=== PATIENT | male | born 1990 | race Hispanic/Latino ===

== ENCOUNTER 2024-12-03 08:20 | Emergency (ER) | payer OTHER, MEDICARE ==
[~2024-12-03] VITALS: Ht 165.1 cm; Wt 104.3 kg
[2024-12-03 10:11] LABS: BASOPHILS # (AUTO) 0.04 K/uL (0.00-0.20); BASOPHILS % (AUTO) 0.6 % (0.0-5.0); EOSINOPHILS # (AUTO) 0.18 K/uL (0.00-0.70); EOSINOPHILS % (AUTO) 2.9 % (0.0-8.0); HEMATOCRIT 46.1 % (42-54); IMMATURE GRANULOCYTE ABSOLUTE 0.01 K/uL (0-1); LYMPHOCYTES # (AUTO) 2.2 K/uL (1.0-4.8); LYMPHOCYTES % (AUTO) 35.8 % (21.0-51.0); MEAN CORPUSCULAR HEMOGLOBIN 28.7 pg (27.0-33.0); MEAN CORPUSCULAR HGB CONC 32.5 g/dL (32.0-36.0); MEAN CORPUSCULAR VOLUME 88.3 fL (79-99); MONOCYTES # (AUTO) 0.4 K/uL (0.1-1.0); MONOCYTES % (AUTO) 7.1 % (3.0-13.0); NEUTROPHILS # (AUTO) 3.3 K/uL (1.8-7.7); NEUTROPHILS % (AUTO) 53.4 % (40.0-77.0); PLATELET COUNT (AUTO) 213 K/uL (130-400); RED BLOOD CELL COUNT(AUTO) 5.22 MIL/uL (4.50-6.20); RED CELL DISTRIBUTION WIDTH 14.1 % (11.0-15.5); WHITE BLOOD COUNT (AUTO) 6.2 K/uL (4.8-10.8)
[2024-12-03 10:29] LABS: POTASSIUM 3.8 mmol/L (3.5-5.1)
[2024-12-03 10:30] LABS: APPEARANCE,URINE CLEAR (CLEAR); BILIRUBIN,URINE NEGATIVE (NEGATIVE); COLOR,URINE YELLOW (YELLOW); GLUCOSE, URINE (UA) NEGATIVE (NEGATIVE); KETONES,URINE NEGATIVE (NEGATIVE); LEUKOCYTE ESTERASE ,URINE NEGATIVE Leu/uL (NEGATIVE); NITRATE,URINE NEGATIVE (NEGATIVE); OCCULT BLOOD,URINE NEGATIVE (NEGATIVE); PROTEIN,URINE 10 mg/dL (NEGATIVE)
[2024-12-03 10:31] LABS: ADD UA MICROSCOPIC YES
[2024-12-03 10:33] LABS: MUCUS,URINE MANY LPF (None Seen); RBC,URINE 0-1 /HPF (0-1)
[2024-12-03] MEDS ORDERED: IOHEXOL 350 MG/ML 100ML INFUS..BTL IV ONE (10:38)
[2024-12-03] MEDS: ketOROlac 15MG/ML VIAL (15MG/ML) IV ONE (10:41)
[2024-12-03] MEDS: LACTATED RINGERS 1000ML 1,000 ML IV ONE (10:41)
[2024-12-03 11:18] LABS: ERYTHROCYTE SEDIMENTATION RATE 5 MM/HR (0-15)
--- NOTE | 2024-12-03 11:23 | EKG ---
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
--- NOTE | 2024-12-03 11:28 | HMCIMG ---
CT ABDOMEN/PELVIS W/CONTRAST HISTORY: Left lower abdominal pain COMPARISON: None TECHNIQUE: Multiple sequential axial images of the abdomen and pelvis were obtained from the dome of the diaphragm through symphysis pubis. Patient was not given contrast through intravenous route. Oral contrast was not given. FINDINGS: No pleural effusion is seen bilaterally. There is no evidence of parenchymal disease or pulmonary nodule of the visualized lower lungs. Degenerative changes of the thoracolumbar spine are present. The heart is not enlarged. Liver measured 13.2 cm. The liver, spleen, adrenal glands and pancreas are unremarkable. There is no evidence of hydronephrosis bilaterally. No evidence of renal stone is seen. There is mild diverticulosis. Fecal material is seen in the colon. There are normal size retroperitoneal and mesenteric lymph nodes. No ascites is seen. Atherosclerotic changes are present. Pelvic sidewalls are symmetric bilaterally. Bladder is well distended without wall thickening. IMPRESSION: 1. There is mild diverticulosis. No ascites is seen. Fecal material is seen. CT was performed with one or more following dose reduction techniques: automated exposure control, adjustment of the mA and kv according to patient's size, or use of a iterative reconstruction technique.
[2024-12-03 12:00] VITALS: TEMP 98.7
--- NOTE | 2024-12-03 12:04 | ERN ---
General Chief Complaint: Multiple Complaints Stated Complaint: WEAKNESS Time Seen by MD: 08:27 History of Present Illness Initial Comments 34-year-old male, history of cerebral palsy developmental delay and seizures, presents for left lower quadrant pain left hip pain left leg pain. According to the staff, the patient has been complaining of his pain on and off for a couple of weeks. Recently he has had decreased eating and he has been more tired than usual. No fevers. No vomiting. No diarrhea. No changes to urination. Patient is able to communicate some, does not indicate that he has pain on the left femur, left hip, left lower quadrant area. There was no obvious skin changes to the area or signs of trauma. Allergies: Coded Allergies: No Known Allergies (Unverified Allergy, Unknown, 12/03/24) Past Medical History Past Medical History: Bipolar, Depression, Seizure Medical History Other: MR Past Surgical History: Unknown ROS Dictation CONSTITUTIONAL: No chills, no fever, no weakness, no diaphoresis, no malaise. HEAD/FACE: No signs of trauma. EENT: No eye pain, no blurred vision, no tearing, no double vision, no ear pain, no ear discharge, no nose pain, no nasal congestion, no throat pain, no throat swelling, no mouth pain. RESPIRATORY: No cough, no orthopnea, no SOB, no stridor, no wheezing. CARDIOVASCULAR: No chest pain, no edema, no palpitations, no syncope. GASTROINTESTINAL/ABDOMINAL: Abdominal pains GENITOURINARY: No abnormal discharge, no dysuria, no frequent urination, no hematuria. No complaints of pain in the genitals. MUSCULOSKELETAL: Left-sided abdominal pain left-sided leg pain INTEGUMENTARY: No change in color, no change in hair/nails, no dryness, no lesion, no lumps, no rash. NEUROLOGICAL/PSYCH: No anxiety, not depressed, no emotional problem, no headache, no numbness, no pre-existing deficit, no history of seizures, no tremors, no weakness. HEMATOLOGIC/LYMPHATIC: Not anemic, no history of blood clots, no apparent bleeding, no bruising, glands not swollen. All Systems Negative, Except as Noted. Physical Exam Physical Exam Dictation VITAL SIGNS: Reviewed. GENERAL APPEARANCE: Alert, baseline mentation HEAD AND FACE: Non-traumatic. EYES: PERRL, pink conjunctivas, eyelid no trauma, anterior chamber clear. EARS: Pinnas intact and no signs of trauma or erythema. Ear canals clear and no discharge. TMs no erythema. NOSE: No discharge, no bleeding. OROPHARYNX: Mouth normal, teeth no caries, tongue pink. Pharynx clear, no erythema. Tonsils no exudates, no abscesses noted. Mucous membrane moist. NECK: Supple, non-tender, no thyromegaly, no masses, no JVD, no bruits. BREAST: Deferred. CHEST: No tenderness, no crepitus, no paradoxical movement, no retractions. LUNGS: Clear, well-ventilated, symmetric, no rales, no wheezing, no rhonchi, no stridor, good breath sounds bilaterally. HEART: Regular rate, regular rhythm, no murmur, no gallops. VASCULAR: No peripheral edema. ABDOMEN: Soft, positive bowel sounds, nondistended, no guarding, nontender, no rebound, no masses no hepatomegaly, no splenomegaly, no Grant's sign, no hernias. RECTAL: Deferred. GENITAL: Deferred. NEUROLOGICAL: Normal speech, gross motor function intact, gross sensory function intact. MUSCULOSKELETAL: Neck nontender, full range of motion, back nontender, full range of motion. EXTREMITIES: Nontender, full range of motion. SKIN: Color pink, dry, no turgor, no rash, no lacerations, no abrasions, no contusions. LYMPHATICS: Deferred. Results Laboratory and Microbiology Lab and Micro Result Laboratory Tests Test 12/03/24 09:47 12/03/24 10:22 White Blood Count 6.2 K/uL (4.8-10.8) Red Blood Count 5.22 MIL/uL (4.50-6.20) Hemoglobin 15.0 g/dL (14.0-18.0) Hematocrit 46.1 % (42-54) Mean Corpuscular Volume 88.3 fL (79-99) Mean Corpuscular Hemoglobin 28.7 pg (27.0-33.0) Mean Corpuscular Hemoglobin Concent 32.5 g/dL (32.0-36.0) Red Cell Distribution Width 14.1 % (11.0-15.5) Platelet Count 213 K/uL (130-400) Mean Platelet Volume 10.9 fL (7.5-10.5) H Immature Granulocyte % (Auto) 0.2 % (0-1) Neutrophils (%) (Auto) 53.4 % (40.0-77.0) Lymphocytes (%) (Auto) 35.8 % (21.0-51.0) Monocytes (%) (Auto) 7.1 % (3.0-13.0) Eosinophils (%) (Auto) 2.9 % (0.0-8.0) Basophils (%) (Auto) 0.6 % (0.0-5.0) Neutrophils # (Auto) 3.3 K/uL (1.8-7.7) Lymphocytes # (Auto) 2.2 K/uL (1.0-4.8) Monocytes # (Auto) 0.4 K/uL (0.1-1.0) Eosinophils # (Auto) 0.18 K/uL (0.00-0.70) Basophils # (Auto) 0.04 K/uL (0.00-0.20) Absolute Immature Granulocyte (auto 0.01 K/uL (0-1) Nucleated Red Blood Cells 0.0 % (0.0-0.19) Erythrocyte Sedimentation Rate 5 MM/HR (0-15) Sodium Level 142 mmol/L (136-145) Potassium Level 3.8 mmol/L (3.5-5.1) Chloride Level 111 mmol/L (101-111) Carbon Dioxide Level 27 mmol/L (21-32) Blood Urea Nitrogen 12 mg/dL (7-18) Creatinine 1.0 mg/dL (0.5-1.3) Glomerular Filtration Rate Calc 101 mL/min (>90) Random Glucose 89 mg/dL (70-105) Total Calcium 8.5 mg/dL (8.5-10.1) Total Creatine Kinase 237 U/L (21-232) H C-Reactive Protein, Quantitative 7.80 mg/L (0.5-3.0) H Lipase 41 U/L (16-77) Urine Color YELLOW (YELLOW) Urine Appearance CLEAR (CLEAR) Urine pH 6.0 (5.0-8.0) Urine Specific [place] 1.032 (1.001-1.031) Urine Protein 10 mg/dL (NEGATIVE) H Urine Glucose (UA) NEGATIVE mg/dL (NEGATIVE) Urine Ketones NEGATIVE mg/dL (NEGATIVE) Urine Occult Blood NEGATIVE (NEGATIVE) Urine Nitrate NEGATIVE (NEGATIVE) Urine Bilirubin NEGATIVE mg/dL (NEGATIVE) Urine Urobilinogen 2.0 mg/dL (0.2-1.0) H Urine Leukocyte Esterase NEGATIVE Jessica/uL Urine RBC 0-1 /HPF (0-1) Urine WBC 2-5 /HPF (0-1) H Urine Bacteria None /HPF (None Seen) MDM CC: Left leg pain left lower abdominal pain Historian: Patient although difficult to communicate due developmental delay. Patient's ambulatory services representative at bedside also assisted with the history. Comorbidities: Developmental delay, cerebral palsy, seizure disorder Limitations by social determinants of health: None Differential diagnosis: UTI, diverticulitis, musculoskeletal type pain, lesions, other. Vital signs: Stable, remained stable here in the ER. Labs (independently ordered and interpreted by me): CBC is unremarkable, sed rate is normal, chemistry panel is unremarkable. CK stable lipase stable. CRP is mildly elevated at 7.8. Urinalysis shows some dehydration otherwise unremarkable. CT scan of the abdomen and pelvis with contrast (independently interpreted by me): Shows mild diverticulosis but otherwise no acute abnormalities. Femur x-ray of the left (independently interpreted by me): No acute abnormalities. Patient received IV fluids, IV Rocephin, IV Toradol here in the ER. Plan will be to discharge the patient will Augmentin. I have low suspicion for an acute diverticulitis complication, but since he is having the left-sided pain with history of diverticulosis and he is not able to communicate clearly, we will discharge with some antibiotics and pain control. Patient and ambulatory services representative agree with this plan. Discharge prescriptions: Augmentin, extra-strength Tylenol, ibuprofen ED Course Orders Procedure Category Date Status Time Cbc With Differential LAB 12/03/24 Complete :35 Urinalysis Profile LAB 12/03/24 Complete :35 Ct Abdomen/Pelvis CT 12/03/24 Resulted W/Contrast :35 12 Lead Ekg Tracing- EKG 12/03/24 Complete Technical :35 Lactated Ringers PHA 12/03/24 Complete 1000ml (Lactated 10:00 Creatine Kinase, Total LAB 12/03/24 Complete :35 Lipase LAB 12/03/24 Complete :35 Basic Metabolic Panel LAB 12/03/24 Complete :35 Femur 2 Vw Left RAD 12/03/24 Taken :35 Crp Quantitative LAB 12/03/24 Complete 09:35 Erythrocyte LAB 12/03/24 Complete Sedimentation Rate 09:35 Ketorolac PHA 12/03/24 Complete Tromethamine 15mg/Ml 10:00 Iohexol (Omnipaque) PHA 12/03/24 Complete 10:38 Ceftriaxone 1g Vial PHA 12/03/24 Complete (Rocephine 1g Inj) 12:00 Current Medications Medications (Trade) Dose Ordered Sig/Ana Laura Route PRN Reason Start Time Stop Time Status Last Admin Dose Admin Ceftriaxone Sodium (ROCEphine 1G INJ) 1 gm ONCE ONCE IVPB 12/03/24 12:00 12/03/24 12:01 DC Iohexol (Omnipaque) 35,000 mg STK-MED ONCE IV 12/03/24 10:38 12/03/24 10:39 DC Ketorolac Tromethamine (toRADol) 15 mg ONCE ONCE IV 12/03/24 10:00 12/03/24 10:28 DC 12/03/24 10:41 Lactated Ringer's 1,000 ml @ 0 mls/hr ONCE ONCE IV 12/03/24 10:00 12/03/24 10:27 DC 12/03/24 10:41 Vital Signs Date Time Temp Pulse Resp B/P (MAP) Pulse Ox O2 Delivery O2 Flow Rate FiO2 12/03/24 08:26 97.9 64 18 103/63 100 DX & DISP Disposition: Discharge Departure Impression: Primary Impression: Diverticulosis Condition: Stable Scripts Ibuprofen (Ibuprofen 800 mg Tab) 800 Mg Tab 800 MG PO Q6H PRN for PAIN, #30 TAB Prov: DAMASO HARDEN DO 12/03/24 Acetaminophen (Tylenol Extra Strength) 500 Mg Tablet 1000 MG PO QID PRN for PAIN for 10 Days, #20 TAB Prov: DAMASO HARDEN DO 12/03/24 Amoxicillin/Potassium Clav (Amox Tr-K Clv 875-125 mg Tab) 875 Mg-125 Mg Tablet 1 TAB PO BID for 10 Days, #20 TAB 0 Refills Prov: DAMASO HARDEN DO 12/03/24 Additional Instructions: Vijay may have a mild lower abdominal infection (diverticulosis). His blood work is unremarkable. The CT scan shows diverticulosis without any acute abnormalities. The x-ray is unremarkable. I have prescribed Augmentin, which is an antibiotic. Take as prescribed. Alternate Tylenol and ibuprofen for pain. Be sure to drink plenty of liquids. An electrolyte solution such as Gatorade has a good choice. I recommend follow up with the primary provider in the next 3-5 days if symptoms do not improve. Return to the emergency department sooner if you have any concerns. Referrals: WESLEY MORELAND MD (PCP) DAMASO HARDEN DO Dec 03, 2024 12:04
[2024-12-03] MEDS ORDERED: ACET-2743 PO (12:19)
[2024-12-03] MEDS ORDERED: IBUP-2077 PO (12:19)
[2024-12-03] MEDS ORDERED: AMOX1TAB16 PO (12:19)
--- NOTE | 2024-12-03 12:21 | HMCIMG ---
FEMUR 2 VW LEFT HISTORY: Pain COMPARISON: None TECHNIQUE: 4 images of left femur were obtained. FINDINGS: There is no acute displaced fracture or dislocation. Degenerative changes are seen. IMPRESSION: 1. Findings as described above.
[2024-12-03] MEDS: cefTRIAXone 1G VIAL IVPB ONE (12:56)
[2024-12-03 13:04] VITALS: BP 106/65; PULSE 62; RESP 18; O2SAT 100
== END 2024-12-03 13:15 | disposition home or self-care (01) ==
LOC: EDH 08:20
DX: K57.30 Diverticulosis of large intestine without perforation or abscess without bleeding (principal); F32.A Depression, unspecified
CPT/HCPCS: 99285; 74177; 96374; 96361; 96375; 82550; 80048; 83690; 85025; 85651; 86140; 81001; 36415; 73552; 93005; J1885; J7120; J0696; Q9967

== ENCOUNTER 2025-01-09 21:22 | Emergency (ER) | payer OTHER, MEDICARE ==
[~2025-01-09] VITALS: Ht 175.3 cm; Wt 104.3 kg
[~2025-01-09 21:22] MED LIST: ACET-2743 PO; AMOX1TAB16 PO; IBUP-2077 PO
--- NOTE | 2025-01-09 21:23 | NUR ---
PT PLACED IN ED ROOM 11. PT CARE ASSUMED AT THIS TIME.
--- NOTE | 2025-01-09 21:34 | ERN ---
ED Note History of Present Illness Stated Complaint: SEIZURES X 5 the patient is brought in from a [facility] from earlier. The patient has on a strict schedule of multiple antiepileptics some medications. Has developmental disorder. Denies any cough congestion runny nose fevers chills chest pain abdominal pain or any other issues. As the patient comes in. He is answering simple questions that has name I says he feels okay. And also to with the family member present. That has says it is mentation is the same as before. Apparently the seizurwere less than a minute a piece. Chief Complaint: Seizure Time Seen by MD: 21:27 Allergies: Coded Allergies: No Known Allergies (Unverified Allergy, Unknown, 12/03/24) Home Meds Active Scripts Ibuprofen (Ibuprofen 800 mg Tab) 800 Mg Tab, 800 MG PO Q6H PRN for PAIN, #30 TAB Prov:DAMASO HARDEN DO 12/03/24 Acetaminophen (Tylenol Extra Strength) 500 Mg Tablet, 1000 MG PO QID PRN for PAIN for 10 Days, #20 TAB Prov:DAMASO HARDEN DO 12/03/24 Amoxicillin/Potassium Clav (Amox Tr-K Clv 875-125 mg Tab) 875 Mg-125 Mg Tablet, 1 TAB PO BID for 10 Days, #20 TAB 0 Refills Prov:DAMASO HARDEN DO 12/03/24 Past Medical History Past Medical History: Bipolar, Depression, Seizure Additional Past Medical Hx: MR Surgical History: Unknown Review of System Dictation Constitutional: Negative for fever,chills, and weight loss Eyes: Negative for injury, pain,redness, and discharge ENT: Negative for injury,pain or swelling Cardiovascular: Negative for chest pain, palpitations, and edema Respiratory: Negative for shortness of breath, cough, and wheezing, Abdomen/GI: Negative for abdominal pain, nausea, vomiting, diarrhea, and constipation Back: Negative for injury and pain : Negative for injury, bleeding and discharge MS/Extremity: Negative for injury and deformity Skin: Negative for rash, and discoloration Neuro: Negative for headache, weakness, numbness, tingling, and seizure Psych: Negative for suicide ideation, homicidal ideation, and hallucinations Initial Vital Sign VS Vital Signs Date Time Temp Pulse Resp B/P (MAP) Pulse Ox O2 Delivery O2 Flow Rate FiO2 01/09/25 21:23 99.1 108 17 113/87 97 Room Air 0 01/09/25 21:28 21 Physical Exam Dictation General: awake, alert, NAD Head/Face: Normocephalic, atraumatic Eyes: PERRL, EOMI, vision at baseline ENT: oral cavity clear, TMs clear, no signs of infection Neck: Trachea midline, supple, no nuchal rigidity Cardiovascular: RRR, normal S1/S2, No MRGs, no JVD Respiratory: CTAB, no respiratory distress, No rales or wheezes Abdomen: Soft, non-tender, non-distended, normal bowel sounds, no guarding or rebound. Skin: Warm, dry, normal turgor, no rash MS/Extremity: Pulses equal, no cyanosis, neurovascular intact, FROM Neuro: COAx4, GCS 15, strength 5/5, CN 2-12 intact, normal cerebellar exam, normal gait, Psych: Normal behavior, mood, and affect normal Had nurse present during this encounter encounter Norma. Patient was did have these mild tremors I said this is baseline chronic. He has tremors 247. I he is answering questions he is not actively seizing. Results (Laboratory/Radiology) Laboratory/Radiology Laboratory Tests Test 01/09/25 21:48 White Blood Count 7.0 K/uL (4.8-10.8) Red Blood Count 5.33 MIL/uL (4.50-6.20) Hemoglobin 15.3 g/dL (14.0-18.0) Hematocrit 45.7 % (42-54) Mean Corpuscular Volume 85.7 fL (79-99) Mean Corpuscular Hemoglobin 28.7 pg (27.0-33.0) Mean Corpuscular Hemoglobin Concent 33.5 g/dL (32.0-36.0) Red Cell Distribution Width 13.8 % (11.0-15.5) Platelet Count 246 K/uL (130-400) Mean Platelet Volume 10.3 fL (7.5-10.5) Immature Granulocyte % (Auto) 0.3 % (0-1) Neutrophils (%) (Auto) 50.7 % (40.0-77.0) Lymphocytes (%) (Auto) 38.8 % (21.0-51.0) Monocytes (%) (Auto) 6.4 % (3.0-13.0) Eosinophils (%) (Auto) 3.4 % (0.0-8.0) Basophils (%) (Auto) 0.4 % (0.0-5.0) Neutrophils # (Auto) 3.6 K/uL (1.8-7.7) Lymphocytes # (Auto) 2.7 K/uL (1.0-4.8) Monocytes # (Auto) 0.5 K/uL (0.1-1.0) Eosinophils # (Auto) 0.24 K/uL (0.00-0.70) Basophils # (Auto) 0.03 K/uL (0.00-0.20) Absolute Immature Granulocyte (auto 0.02 K/uL (0-1) Nucleated Red Blood Cells 0.0 % (0.0-0.19) Sodium Level 144 mmol/L (136-145) Potassium Level 3.5 mmol/L (3.5-5.1) Chloride Level 110 mmol/L (101-111) Carbon Dioxide Level 27 mmol/L (21-32) Blood Urea Nitrogen 10 mg/dL (7-18) Creatinine 1.0 mg/dL (0.5-1.3) Glomerular Filtration Rate Calc 101 mL/min (>90) Random Glucose 92 mg/dL (70-105) Total Calcium 8.4 mg/dL (8.5-10.1) L Troponin I High Sensitivity 8 ng/L (4-75) ED Course ED Course Orders Procedure Category Date Status Time Cbc With Differential LAB 01/09/25 Complete 21:34 Chest 1vw RAD 01/09/25 Taken 21:34 12 Lead Ekg Tracing- EKG 01/09/25 Complete Technical 21:34 Lactated Ringers PHA 01/09/25 Complete 1000ml (Lactated 22:00 Troponin I High LAB 01/09/25 Complete Sensitivity 21:34 Basic Metabolic Panel LAB 01/09/25 Complete 21:34 Levetiracetam 500 PHA 01/09/25 Complete Mg/5 M[address] Sd V (Keppra 5 22:00 Midazolam Hcl (Versed) PHA 01/09/25 Complete 22:00 Levetiracetam 500 PHA 01/09/25 Complete Mg/5 Ml Sd V (Keppra 5 22:00 Current Medications Medications (Trade) Dose Ordered Sig/Ana Laura Route PRN Reason Start Time Stop Time Status Last Admin Dose Admin Lactated Ringer's 1,000 ml @ 0 mls/hr ONCE ONCE IV 01/09/25 22:00 01/09/25 22:01 DC 01/09/25 22:22 Levetiracetam (kepPRA 500 MG/5 ML SD VIAL) 1,000 mg ONCE IV 01/09/25 22:00 01/09/25 21:39 DC Levetiracetam 1000 mg/Sodium Chloride 100 ml @ 400 mls/hr ONCE ONCE IV 01/09/25 22:00 01/09/25 22:14 DC 01/09/25 21:58 Midazolam HCl (Versed) 2 mg ONCE ONCE IVP 01/09/25 22:00 01/09/25 22:01 DC 01/09/25 21:58 Vital Signs Date Time Temp Pulse Resp B/P (MAP) Pulse Ox O2 Delivery O2 Flow Rate FiO2 01/09/25 21:28 98.2 106 20 113/87 99 Room Air* 0 21 01/09/25 21:23 99.1 108 17 113/87 97 Room Air 0 Medical Decision Making MDM Patient had a breakthrough seizure. Labs are within normal limits. Did not I do not have any falls trips cough congestion runny nose fevers chills or change in activity mentation per them other than this these less than a minute seizures. Earlier in the day. He has since returned to baseline since then. The family member feels that he is stable to go home. I told him if any other changes to return immediately to ED there fallen up with the Neurology and that is next month. MDM: Differential diagnosis: Rationale: Tests considered and ordered secondary to shared decision making include: Previous outside records reviewed: Old ER visits. Risk of complication and/or morbidity or mortality of patient management: None Medications-Per medication reconciliation Need for hospitalization: Patient does not meet criteria for hospitalization. Need for emergency major/minor surgery: No There are no social concerns with this patient. Prescription drug management Prescriptions will include symptomatic care Patient's prior external medical records from other ER visits were reviewed by me as indicated. Prior testing and results from previous visits were reviewed. Prior tests were taken into account with medical decision making and resource utilization, independent historian/historians were used to obtain complete medical history. I independently interpreted the test that were performed, results were reviewed by me and considered findings on radiology if ordered. Medical management and examination interpretation discussions were had by me with other qualified healthcare professionals as indicated for the patient's care. DX & DISP Disposition: Discharge Departure Impression: Primary Impression: Breakthrough seizure Condition: Stable Referrals: WESLEY MORELAND MD (PCP) GORDON ZULETA MD Jan 09, 2025 21:33
--- NOTE | 2025-01-09 21:45 | NUR ---
PT ARRIVED TO ED ACCOMPANIED BY [facility] STAFF. PT IS PARTIALLY VERBAL AND UNABLE TO PROVIDE FULL HISTORY. PER CMM PROGRAMMER, PT REPORTEDLY EXPERIENCED 5 SEIZURES TODAY;HOWEVER THE STAFF MEMBER AT [facility] DID NOT WITNESS ANY OF THE EVENTS DIRECTLY. NO SEIZURE ACTIVITY NOTED UPON ARRIVAL TO ED OR DURING INITAL ASSESSMENT. PT IS ALERT AND RESTING IN BED, PT SHOWS NO SIGNS OF DISTRESS.
--- NOTE | 2025-01-09 21:48 | EKG ---
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
[2025-01-09 21:55] LABS: IMMATURE GRANULOCYTE ABSOLUTE 0.02 K/uL (0-1); NUCLEATED RED BLOOD CELLS 0.0 % (0.0-0.19); PLATELET COUNT (AUTO) 246 K/uL (130-400); RED BLOOD CELL COUNT(AUTO) 5.33 MIL/uL (4.50-6.20); RED CELL DISTRIBUTION WIDTH 13.8 % (11.0-15.5); WHITE BLOOD COUNT (AUTO) 7.0 K/uL (4.8-10.8)
[2025-01-09] MEDS: leveTIRACEtam 500 MG/5 ML SD V 1,000 MG in 0.9%NACL 100ML 100 ML IV ONE (21:58)
[2025-01-09] MEDS: MIDAZOLAM HCL 1 MG/ML 2ML VIAL IVP ONE (21:58)
[2025-01-09 22:03] LABS: CREATININE 1.0 mg/dL (0.5-1.3); GLOMERULAR FILTR. RATE CALC 101.0 mL/min (>90); GLUCOSE,RANDOM 92.0 mg/dL (70-105); SODIUM SERUM 144.0 mmol/L (136-145); UREA NITROGEN, BLOOD 10.0 mg/dL (7-18)
[2025-01-09] MEDS: LACTATED RINGERS 1000ML 1,000 ML IV ONE (22:22)
[2025-01-09 23:26] VITALS: BP 123/68; PULSE 88; RESP 17; TEMP 98.5; O2SAT 99
--- NOTE | 2025-01-09 23:28 | HMCIMG ---
EXAM: CR Chest, 1 view CLINICAL HISTORY: Pain. COMPARISON: None provided. FINDINGS: The lungs show no infiltrates or other acute findings. No pleural effusion or pneumothorax. The cardiomediastinal silhouette is within normal limits. No acute osseous abnormality. IMPRESSION: No acute cardiopulmonary process is evident. /[place]
== END 2025-01-09 23:41 | disposition home or self-care (01) ==
LOC: EDH 21:22
DX: G40.909 Epilepsy, unspecified, not intractable, without status epilepticus (principal); Z79.899 Other long term (current) drug therapy
CPT/HCPCS: 99285; 96365; 71045; 96375; 84484; 80048; 85025; 36415; 93005; J7120; J1953; J2250